=== PATIENT | male | born 1980 | race Caucasian/White ===

== ENCOUNTER 2024-03-25 12:39 | Inpatient (IN) | payer OTHER ==
[2024-03-25 13:11] VITALS: BMI 27.6
[2024-03-25] MEDS ORDERED: guaiFENesin 600 MG TABLET.ER (FP) PO PRN (14:37)
[2024-03-25] MEDS ORDERED: BENZOCAINE/MENTHOL (CHLORASEPTIC ) LOZENGE MM PRN (14:37)
[2024-03-25] MEDS ORDERED: ONDANSETRON *ODT* 4 MG TABLET SL PRN (14:37)
[2024-03-25] MEDS ORDERED: BISMUTH SUBSALICYLATE 262 MG/15 ML BTL PO PRN (14:37)
[2024-03-25] MEDS ORDERED: NALOXONE (NARCAN) HCL 4 MG/0.1 ML SPRAY NS PRN (14:37)
[2024-03-25] MEDS ORDERED: DICYCLOMINE HCL 10 MG CAPSULE PO PRN (14:37)
[2024-03-25] MEDS ORDERED: BENZONATATE 200 MG CAPSULE PO PRN (14:37)
[2024-03-25] MEDS ORDERED: MAGNESIUM HYDROX 2400MG/30ML ORAL SUSPENSION 30 ML CUP PO PRN (14:37)
[2024-03-25] MEDS ORDERED: ACETAMINOPHEN 325 MG TABLET (FP) PO PRN (14:37)
[2024-03-25] MEDS ORDERED: NICOTINE POLACRILEX 4 MG GUM BUC PRN (14:37)
[2024-03-25] MEDS ORDERED: IBUPROFEN 600 MG TABLET (FP) PO PRN (14:37)
[2024-03-25] MEDS ORDERED: NICOTINE POLACRILEX 4 MG LOZENGE BC PRN (14:37)
[2024-03-25] MEDS ORDERED: NICOTINE 21 MG/24 HOURS TOPICAL PATCH TD PRN (14:37)
[2024-03-25] MEDS ORDERED: NALOXONE HCL 0.4 MG/ML VIAL IM PRN (14:37)
[2024-03-25] MEDS ORDERED: LOPERAMIDE HCL 2 MG CAPSULE PO PRN (14:37)
[2024-03-25] MEDS ORDERED: IBUPROFEN 400 MG TABLET (FP) PO PRN (14:37)
[2024-03-25] MEDS ORDERED: POLYETHYLENE GLYCOL (HEALTHYLAX) 3350 17 GM PACKET PO PRN (14:37)
[2024-03-25] MEDS ORDERED: MAG HYDROX/AL HYDROX/SIMETH 30 ML UNIT-DOSE CUP PO PRN (14:37)
[2024-03-25] MEDS: METHOCARBAMOL 500 MG TABLET PO PRN (20:32)
[2024-03-25] MEDS: hydrOXYzine PAMOATE 25 MG CAPSULE (FP) PO PRN (20:32)
[2024-03-25] MEDS ORDERED: diazePAM 5 MG TABLET PO PRN (20:35)
[2024-03-25] MEDS: methaDONE HCL 10 MG TABLET PO ONE (21:17)
[2024-03-25] MEDS: diazePAM 5 MG TABLET PO ONE (21:18)
[2024-03-25] MEDS: MELATONIN 5 MG TABLETS PO SCH (22:29)
[2024-03-25] MEDS: THIAMINE 100 MG TABLET PO SCH (22:29)
[2024-03-25] MEDS: diazePAM 5 MG TABLET PO SCH (22:30)
[2024-03-26] MEDS: methaDONE HCL 40 MG DISPERSABLE TABLET PO SCH (10:33)
[2024-03-26] MEDS: PRENATAL VITAMINS W/ FOLIC ACID TABLET (FP) PO SCH (10:34)
[2024-03-26 11:57] LABS: HEMATOCRIT 37.4 % (35.4-49); HEMOGLOBIN 12.4 GM/dL (11.7-16.9); MCH 29.2 pg (25.7-33.7); MCHC 33.1 g/dl (32.0-35.9); MEAN CELL VOLUME 88.3 fl (80-96); PLATELET COUNT 191 10^3/uL (134-434); RBC 4.23 M/mm3 (4.00-5.60); RDW 14.7 % (11.9-15.9); WHITE BLOOD COUNT 4.7 K/mm3 (4.0-10.0)
[2024-03-26 12:04] LABS: POTASSIUM 3.9 mmol/L (3.5-5.1)
[2024-03-26 12:13] LABS: ALBUMIN 2.9 g/dl (3.4-5.0); BLOOD UREA NITROGEN 13.6 mg/dL (7-18); CALCIUM 8.5 mg/dL (8.5-10.1)
[2024-03-26 12:14] LABS: CREATININE 0.7 mg/dL (0.55-1.3)
[2024-03-26 12:16] LABS: TOT PROT 5.8 g/dl (6.4-8.2)
[2024-03-26 12:18] LABS: BILIRUBIN,TOTAL 0.3 mg/dL (0.2-1)
[2024-03-27] MEDS: diazePAM 5 MG TABLET PO SCH (06:02)
[2024-03-28] MEDS: diazePAM 5 MG TABLET PO SCH (06:14)
[2024-03-29] MEDS: diazePAM 5 MG TABLET PO ONE (05:47)
[2024-03-29 16:51] VITALS: RESP 18
[2024-03-30 06:16] VITALS: TEMP 97.1
[2024-03-30 09:23] VITALS: BP 102/51; PULSE 60
== END 2024-03-30 11:36 | disposition home or self-care (01) | DRG 773 ==
LOC: YASAS 12:39 → Y6N 14:53
PROVIDERS: ADMIT Allergy & Immunology; ATTEND Surgery
PROC: HZ2ZZZZ Detoxification Services for Substance Abuse Treatment (ICD-10-PCS; principal; 2024-03-25)
DX: F10.230 Alcohol dependence with withdrawal, uncomplicated (principal); F11.20 Opioid dependence, uncomplicated; F14.20 Cocaine dependence, uncomplicated; F17.210 Nicotine dependence, cigarettes, uncomplicated; Z86.19 Personal history of other infectious and parasitic diseases; Z56.0 Unemployment, unspecified; Z59.00 Homelessness unspecified
CPT/HCPCS: 36415; 80053; 80305; 80307; 82962; 85027; 86780; 93005; 93010